=== PATIENT | male | born 1935 | race Caucasian/White ===

== ENCOUNTER 2016-05-15 09:39 | Day surgery (SDC) | payer MEDICARE, MEDICAID ==
[2016-05-15] VITALS (11 sets, daily range): BP systolic 133–178; BP diastolic 51–63; PULSE 52–78; RESP 11–22; Ht 177.8 cm; Wt 78.0 kg
[~2016-05-15] VITALS: Ht 177.8 cm; Wt 78.0 kg
[~2016-05-15 09:39] MED LIST: DEXAMETHASONE 2 MG TAB PO ONE; GABAPENTIN 300 MG CAP PO ONE; VANCOMYCIN 1 GM (PMX) 250 ML IVPB ONE; traMADol 50 MG TAB PO ONE
[2016-05-15] MEDS ORDERED: CELECOXIB 200 MG CAP PO ONE (10:00)
[2016-05-15] MEDS ORDERED: PROPOFOL 20 ML ONE (11:33)
[2016-05-15] MEDS ORDERED: LIDOCAINE 2% (SDV) 5 ML INJ ONE (11:33)
[2016-05-15] MEDS ORDERED: ROPIVACAINE 0.5 % 30 ML VIAL ONE (11:33)
[2016-05-15] MEDS ORDERED: FOSI10TA3 (11:37)
[2016-05-15] MEDS ORDERED: ATOR20TA65 (11:37)
[2016-05-15] MEDS ORDERED: CLON1TAB3 (11:37)
[2016-05-15] MEDS ORDERED: OMEP20CA16 (11:37)
[2016-05-15] MEDS ORDERED: DOXE75CA2 (11:37)
[2016-05-15] MEDS ORDERED: TEMA30CA (11:37)
[2016-05-15] MEDS ORDERED: METF1000 (11:37)
[2016-05-15] MEDS ORDERED: CANA300T PO (11:39)
[2016-05-15] MEDS ORDERED: NEBI2.5T2 PO (11:39)
--- NOTE | 2016-05-15 11:43 | HPN ---
Date/Time of Note Date/Time of Note DATE: 05/15/16 TIME: 11:43 Interval H&P Admission Note Pt. seen H&P reviewed: No system changes VELVET PACK MD May 15, 2016 11:43
--- NOTE | 2016-05-15 13:38 | PDOCDIS ---
Discharge Instructions DIAGNOSIS Discharge Diagnosis: Imipingement with biceps tendon tearing CONDITION Patient Condition: Good HOME CARE INSTRUCTIONS: Diet Instructions: Regular ACTIVITY: Activity Restrictions: Slowly Increase Activity Keep Limb Elevated Bathing Restrictions: Shower FOLLOW UP/APPOINTMENTS Appointments Two weeks SCHOOL/WORK RELEASE May return to School/Work with: With Restrictions School/Work Release Comment: Table top usage for one month VELVET PACK MD May 15, 2016 13:38
--- NOTE | 2016-05-15 13:55 | OPR ---
DATE OF OPERATION: 05/15/2016 SURGEON: Velvet Randle MD SEWING MACHINE OPERATOR PAPER BAGS: Juan Betancur MD PREOPERATIVE DIAGNOSIS: Possible right shoulder rotator cuff tear. POSTOPERATIVE DIAGNOSES: 1. Right shoulder biceps tendon tearing. 2. Right shoulder impingement. 3. Right shoulder partial rotator cuff tear. OPERATION PERFORMED: 1. Right shoulder arthroscopic extensive debridement of glenohumeral joint with release of biceps t endon. 2. Right shoulder acromioplasty with coracoacromial ligament release. Master Electrician surgeon, Juan Betancur MD, was asked to be present at my request as a result of the complexit y associated with the procedure, including positioning of the extremity, manipulation of the arthros cope, and protection of the neurovascular structures. In my opinion, the assistance offered by a velásquez [employer] set up mold technician is insufficient, and Dr. Betancur should be compensated for his time. PROCEDURE IN DETAIL: Following administration of general endotracheal anesthesia, the patient was p laced in the left lateral decubitus position. All prominences were properly padded and protected th roughout. The right upper extremity was then prepped and draped in the usual sterile fashion and pl aced in 10 pounds of balanced traction. Anterior and posterior glenohumeral portals were then estab lished after thorough sterile prep and drape. Glenohumeral arthroscopy revealed that the biceps tendon had severe fraying with near complete teari ng into the bicipital groove and significant thickening of the tendon. There was significant synovi tis within the groove. The superior labrum was also generally frayed from the 10 o'clock to the 3 o 'clock position. The inferior labrum appeared normal, both anteriorly and posteriorly. The glenoi d and humeral articular cartilage had some diffuse grade II changes with no significant breakdown. The rotator cuff was then evaluated. The subscapularis was normal. The supraspinatus had some soft ening at its insertion with no sofía tearing. A marker stitch was placed in that area. The infrasp inatus was normal. The shaver and the ablator were then inserted. The biceps tendon was released and seen to retract d istally. The superior labrum was then debrided down to stable tissue from 10 o'clock to the 3 o'jake ck position. Subacromial space was then entered. The marker stitch was identified, and some scuffing of the rota tor cuff was noted with no sofía full thickness tearing evident. The bursa was then excised thoroug hly. A very thickened coracoacromial ligament was noted with an anterior acromial prominence. The coracoacromial ligament was then released off the anterior acromion and left intact after releasing it laterally. An anterior acromial osteophyte was then resected for a distance of 5 mm back to a fla t surface. A good decompression was confirmed. The subacromial space was irrigated thoroughly. The portals closed using 4-0 Monocryl sutures, Ster i-Strips, and a sterile dressing. The patient was then awakened and transported to recovery room in stable condition, tolerating proce dure well. Dictated By: VELVET BENZ/GREG Conf#: [id number] DID#: [id number]
[2016-05-15] MEDS ORDERED: EPHEDrine SULFATE 50 MG/5 ML SYG IV PRN (14:30)
[2016-05-15] MEDS ORDERED: MEPERIDINE 25 MG INJ IV PRN (14:30)
[2016-05-15] MEDS ORDERED: FENTAnyl 50 MCG/ML VIAL IV PRN ×2 (14:30)
[2016-05-15] MEDS ORDERED: morphine (1 MG/ML) 10ML SYRINGE IV PRN ×2 (14:30)
[2016-05-15] MEDS ORDERED: DIPHENHYDRAMINE 50 MG INJ IV PRN (14:30)
[2016-05-15] MEDS ORDERED: METOCLOPRAMIDE 10 MG INJ IV PRN (14:30)
[2016-05-15] MEDS ORDERED: LABETALOL HCL 20MG INJ IV PRN (14:30)
[2016-05-15] MEDS ORDERED: HYDROmorphONE (0.2 MG/ML) 10ML SYG IV PRN ×2 (14:30)
[2016-05-15] MEDS ORDERED: ONDANSETRON 4 MG INJ IV PRN (14:30)
[2016-05-15] MEDS ORDERED: MIDAZOLAM 1 MG/ML 2 ML INJ IV PRN (14:30)
[2016-05-15] MEDS: hydrALAzine 20 MG INJ IV PRN ×2 (14:44→15:07)
[2016-05-20] MEDS ORDERED: PROPOFOL 100 ML ONE (13:23)
== END 2016-05-15 16:30 | disposition home or self-care (01) ==
LOC: SDS 09:39
PROVIDERS: ATTEND Orthopaedic Surgery
DX: M75.101 Unspecified rotator cuff tear or rupture of right shoulder, not specified as traumatic (principal); M75.41 Impingement syndrome of right shoulder; S46.211D Strain of muscle, fascia and tendon of other parts of biceps, right arm, subsequent encounter; X58.XXXD Exposure to other specified factors, subsequent encounter; E11.9 Type 2 diabetes mellitus without complications
CPT/HCPCS: 29826; 29827; 29828; 82962; J0360; J2795; J3370